=== PATIENT | male | born 1975 | race Caucasian/White ===

== ENCOUNTER → 2016-09-15 | Outpatient (CLI) | payer BC ==
--- NOTE | 2016-09-15 16:22 | RAD ---
Indication right knee injury. Pain. AP oblique and lateral views of the right knee were obtained. No significant bony finding is seen. There is no significant joint fluid.
== END | disposition home or self-care (01) ==
LOC: DXRAD 15:37
PROVIDERS: ATTEND Nurse Practitioner Family
DX: S89.91XA Unspecified injury of right lower leg, initial encounter (principal)
CPT/HCPCS: 73562